=== PATIENT | male | born 1975 | race Caucasian/White ===

== ENCOUNTER 2021-02-03 09:46 | Day surgery (SDC) | payer BC ==
[~2021-02-03] VITALS: Ht 185.4 cm; Wt 85.3 kg
[2021-02-03 10:23] VITALS: BP 132/87; PULSE 72; TEMP 97.7
[2021-02-03 12:10] VITALS: BP 113/81; PULSE 58; TEMP 96.7
--- NOTE | 2021-02-03 12:10 | NUR ---
Pt to endo bay via cart with nurse. Pt ambulates to chair with minimal staff assistance. Pt monitors applied, VSS on RA. Report obtained.
[2021-02-03 12:15] VITALS: BP 113/86; PULSE 57
--- NOTE | 2021-02-03 12:15 | NUR ---
Pepsi and muffin provided, pt tolerates well. VS remain stable.
--- NOTE | 2021-02-03 12:25 | NUR ---
Dr. Reed to pt room and visits with him. Pt is awake and oriented. Pt tolerating well.
[2021-02-03 12:30] VITALS: BP 130/83; PULSE 57
--- NOTE | 2021-02-03 12:30 | NUR ---
Pt denies nausea or abdominal discomfort. VS remain stable.
[2021-02-03 12:45] VITALS: BP 115/75; PULSE 53
--- NOTE | 2021-02-03 12:45 | NUR ---
Pt's VSS, IV DC'd without difficulty. Discharge instructions given.
--- NOTE | 2021-02-03 12:55 | NUR ---
Pt dismissed at this time to private vehicle with spouse Jihan. Pt has discharge instructions.
[2021-02-03 12:56] VITALS: BP 119/79; PULSE 58
== END 2021-02-03 12:55 | disposition home or self-care (01) ==
LOC: SDCO 09:46
DX: D12.3 Benign neoplasm of transverse colon (principal); K31.7 Polyp of stomach and duodenum; K62.89 Other specified diseases of anus and rectum; K57.30 Diverticulosis of large intestine without perforation or abscess without bleeding; K44.9 Diaphragmatic hernia without obstruction or gangrene; R19.7 Diarrhea, unspecified; R10.13 Epigastric pain; Z87.11 Personal history of peptic ulcer disease; Z20.822 Contact with and (suspected) exposure to COVID-19; Z86.16 Personal history of COVID-19; R15.2 Fecal urgency
CPT/HCPCS: J2704; J7030